=== PATIENT | female | born 1980 | race Caucasian/White ===

== ENCOUNTER 2020-09-27 16:48 | Emergency (ER) | payer OTHER ==
[2020-09-27 17:01] VITALS: BP 137/78; PULSE 80; TEMP 99.3; BMI 26.5
[2020-09-27] MEDS ORDERED: ACETAMINOPHEN 325 MG TABLET (FP) PO ONE (17:10)
[2020-09-27] MEDS ORDERED: ACETAMINOPHEN 325 MG TABLET (FP) ONE (17:11)
[2020-09-27 17:39] LABS: HEMATOCRIT 33.4 % (32.4-45.2); HEMOGLOBIN 10.7 GM/dl (10.7-15.3); MCH 26.5 pg (25.7-33.7); MEAN CELL VOLUME 82.9 fl (80-96); PLATELET COUNT 205 K/MM3 (134-434); RBC 4.03 M/mm3 (3.60-5.2); RDW 14.8 % (11.6-15.6); WHITE BLOOD COUNT 3.7 K/mm3 (4.0-10.8)
[2020-09-27 17:53] LABS: ALBUMIN 3.5 g/dl (3.4-5.0); BILIRUBIN,TOTAL 0.2 mg/dl (0.2-1); CALCIUM 8.6 mg/dl (8.5-10); CREATININE 0.6 mg/dl (0.55-1.3); POTASSIUM 4.1 mmol/L (3.5-5.1)
== END 2020-09-27 18:30 | disposition home or self-care (01) ==
LOC: FER 16:48
DX: R06.02 Shortness of breath (principal); R05 Cough
CPT/HCPCS: 36415; 71045-TC-FY; 80053; 82728; 83615; 85027; 85379; 86140; 93005; 99285-25